=== PATIENT | male | born 1995 | race Caucasian/White ===

== ENCOUNTER 2020-01-07 14:43 | Emergency (ER) | payer OTHER ==
--- NOTE | 2020-01-07 16:28 | RAD ---
GREAT TOE RIGHT FOOT 3 VIEWS: Date: 01/07/2020 HISTORY: Pain. FINDINGS: No fracture or dislocation. No lytic or erosive change. The MTP and IP joint appears unremarkable. No soft tissue abnormality seen. IMPRESSION: No acute findings. POS: [facility]
[2020-01-07] MEDS ORDERED: Ibuprofen 200 MG TAB ONE (16:42)
[2020-01-07] MEDS ORDERED: Ibuprofen 800 MG TAB ONE (16:45)
== END 2020-01-07 16:50 | disposition home or self-care (01) ==
LOC: ERS 14:43
DX: S93.501A Unspecified sprain of right great toe, initial encounter (principal); F17.210 Nicotine dependence, cigarettes, uncomplicated; X58.XXXA Exposure to other specified factors, initial encounter